=== PATIENT | female | born 1945 | race Caucasian/White ===

== ENCOUNTER 2016-12-27 14:45 | Observation (INO) ==
--- NOTE | 2016-12-27 14:49 | Emergency Department Note ---
Disposition Clinical Impression: Chest pain of uncertain etiology Disposition: Admitted As Inpatient Condition: Fair General Adult HPI - General Chief complaint: ED Chest Pain Stated complaint: chest discomfort Time Seen by Provider: 12/27/16 14:48 - Related Data Home Medications Medication Instructions Recorded Confirmed Acetaminophen [Tylenol] 500 mg PO Q6H PRN 12/05/14 12/27/16 Aspirin [Adult Low Dose Aspirin EC] 81 mg PO DAILY 12/05/14 12/27/16 Cholecalciferol (Vitamin D3) 1,000 unit PO DAILY 12/05/14 12/27/16 [Vitamin D] Omeprazole [PriLOSEC] 20 mg PO BID 12/05/14 12/27/16 Spironolactone [Aldactone] 25 mg PO DAILY 12/05/14 12/27/16 Biotin 1 mg PO DAILY 12/25/14 12/27/16 Carvedilol 3.125 mg PO BID PRN 12/25/14 12/27/16 Escitalopram [Lexapro] 10 mg PO QPM 12/25/14 12/27/16 Ginkgo Biloba [place] Extract [Ginkgo 30 mg PO DAILY 12/25/14 12/27/16 Biloba] Lovastatin [Mevacor] 20 mg PO HS 12/25/14 12/27/16 Apixaban [Eliquis] 5 mg PO BID 12/27/16 12/27/16 LORazepam [Ativan] 1 mg PO DAILY PRN 12/27/16 12/27/16 Levothyroxine [Synthroid] 50 mcg PO 0630 12/27/16 12/27/16 [place]-3/Dha/Epa/Fish Oil [[place]-3 1,000 mg PO DAILY 12/27/16 12/27/16 Fish Oil 1,000 mg Sfgl] OxyCODONE Oral Soln [OxyCODONE 5 ml PO Q6H PRN 12/27/16 12/27/16 ORAL SOLN] Valsartan [Diovan] 160 mg PO DAILY 12/27/16 12/27/16 Previous Rx's Medication Instructions Recorded Ondansetron HCl 4 mg PO Q8H PRN #60 tablet 01/06/16 Allergies Allergy/AdvReac Type Severity Reaction Status Date / Time Sulfa (Sulfonamide AdvReac Nausea Verified 09/23/15 04:06 Antibiotics) Past Medical History - Past Medical History Medical history: Reports: atrial fibrillation, COPD, coronary artery disease, diabetes, hypertension, renal disease Surgical history: Reports: appendectomy, breast surgery, hip replacement Psychiatric history: Reports: anxiety, depression WASTE MANAGEMENT SPECIALIST history: Reports: bilateral tubal ligation - Social History Smoking Status: Never smoker Smokeless Tobacco Status: No Alcohol use: Reports: none Drug use: Reports: none Course Vital Signs Temperature 97.7 F 12/27/16 14:54 Pulse Rate 50 12/27/16 14:54 Respiratory Rate 18 12/27/16 14:54 Blood Pressure 146/72 12/27/16 14:54 O2 Sat by Pulse Oximetry 99 12/27/16 14:54 Temperature 98.0 F 12/28/16 10:46 Pulse Rate 56 12/28/16 10:46 Respiratory Rate 18 12/28/16 10:46 Blood Pressure 115/73 12/28/16 10:46 O2 Sat by Pulse Oximetry 97 12/28/16 10:46 Oxygen Delivery Oxygen Delivery Nasal Cannula Medical Decision Making - Lab Data Result diagrams: 12/28/16 04:14 12/28/16 04:14 Lab Results 12/27/16 12/27/16 12/27/16 Range/Units 15:41 15:41 15:41 WBC 7.7 (4.3-11.1) K/mcL RBC 4.32 (3.82-4.97) M/mcL Hgb 12.3 (11.5-15.4) g/dL Hct 38.5 (35.3-44.9) % MCV 89.1 (83.0-100.0) fL MCH 28.5 (28.0-33.3) pg MCHC 31.9 (31.6-35.5) g/dL RDW 14.4 (11.5-14.5) % Plt Count 232 (140-400) K/mcL MPV 10.1 (9.4-12.4) fL Immature Gran % 0.5 (0-4) % Seg Neutrophils % 81.0 % Lymphocytes % 8.7 % Monocytes % 8.3 % Eosinophils % 1.0 % Basophils % 0.5 % Neutrophils # 6.3 (1.6-8.9) K/mcL Lymphocytes # 0.7 (0.6-4.6) K/mcL Monocytes # 0.6 (0.0-1.3) K/mcL Eosinophils # 0.1 (0.0-0.6) K/mcL Basophils # 0.0 (0.0-0.2) K/mcL Sodium 141 (136-145) mEq/L Potassium 4.6 H (3.5-4.5) mEq/L Chloride 106 (98-109) mEq/L Carbon Dioxide 25 (19-29) mEq/L BUN 26 H (7-20) mg/dL Creatinine 1.12 H (0.57-1.11) mg/dL Est GFR ( Amer) 58 L (> 60) Est GFR (Non-Af Amer) 48 L (> 60) BUN/Creatinine Ratio 23 (6-26) Glucose 101 H (70-99) mg/dL Calculated Osmolality 297 (280-300) Calcium 9.9 (8.6-10.8) mg/dL Troponin I (0-0.03) ng/mL B-Natriuretic Peptide 18 (0-100) pg/mL 12/27/16 Range/Units 15:41 WBC (4.3-11.1) K/mcL RBC (3.82-4.97) M/mcL Hgb (11.5-15.4) g/dL Hct (35.3-44.9) % MCV (83.0-100.0) fL MCH (28.0-33.3) pg MCHC (31.6-35.5) g/dL RDW (11.5-14.5) % Plt Count (140-400) K/mcL MPV (9.4-12.4) fL Immature Gran % (0-4) % Seg Neutrophils % % Lymphocytes % % Monocytes % % Eosinophils % % Basophils % % Neutrophils # (1.6-8.9) K/mcL Lymphocytes # (0.6-4.6) K/mcL Monocytes # (0.0-1.3) K/mcL Eosinophils # (0.0-0.6) K/mcL Basophils # (0.0-0.2) K/mcL Sodium (136-145) mEq/L Potassium (3.5-4.5) mEq/L Chloride (98-109) mEq/L Carbon Dioxide (19-29) mEq/L BUN (7-20) mg/dL Creatinine (0.57-1.11) mg/dL Est GFR ( Amer) (> 60) Est GFR (Non-Af Amer) (> 60) BUN/Creatinine Ratio (6-26) Glucose (70-99) mg/dL Calculated Osmolality (280-300) Calcium (8.6-10.8) mg/dL Troponin I 0.00 (0-0.03) ng/mL B-Natriuretic Peptide (0-100) pg/mL Attestation Statement - Attestation Attestation: I examined this patient and my medical decision-making was reviewed with the Resident Physician. I agree with the documented findings, disposition and treatment plan as described except to the extent set forth below. [id number] time provided Patient arrives by EMS complaining of chest discomfort that occurs with exertion. She conveys concern that she "might have some blockages." She appears in no acute distress on exam. The plan of care and management was discussed by me with the resident physician Dr. Arevalo
[2016-12-27] MEDS ORDERED: Aspirin 81 MG TAB.CHEW PO ONE (14:53)
--- NOTE | 2016-12-27 15:02 | Emergency Department Note ---
Disposition Clinical Impression: Chest pain of uncertain etiology Disposition: Admitted As Inpatient Condition: Fair Time of Disposition: 18:06 Chest Pain HPI - General Chief Complaint: ED Chest Pain Stated Complaint: chest discomfort Time Seen by Provider: 12/27/16 14:48 Vital Signs Reviewed: Yes Nursing Notes Reviewed: Yes - History of Present Illness HPI Narrative: Mrs. Berumen, a 71-year-old female, resents from home via EMS for evaluation of chest discomfort. This has been intermittent over the last week. She became concerned as it began this morning at 8 AM after she was awake and has been persistent since. It occurred while at rest. She has not taken any medications to help relieve her symptoms. Described as substernal sharpness with no radiation. Associated with nausea. Patient has a history of CAD with ACS with no stent 4 years ago. Her symptoms today are more severe than her symptoms of her previous episode of ACS. PMH: Hypertension, hyperlipidemia, diabetes, CAD with ACS with no stent, status post remote esophageal cancer - Related Data Home Medications Medication Instructions Recorded Confirmed Acetaminophen [Tylenol] 500 mg PO Q6H PRN 12/05/14 12/27/16 Aspirin [Adult Low Dose Aspirin EC] 81 mg PO DAILY 12/05/14 12/27/16 Cholecalciferol (Vitamin D3) 1,000 unit PO DAILY 12/05/14 12/27/16 [Vitamin D] Omeprazole [PriLOSEC] 20 mg PO BID 12/05/14 12/27/16 Spironolactone [Aldactone] 25 mg PO DAILY 12/05/14 12/27/16 Biotin 1 mg PO DAILY 12/25/14 12/27/16 Carvedilol 3.125 mg PO BID PRN 12/25/14 12/27/16 Escitalopram [Lexapro] 10 mg PO QPM 12/25/14 12/27/16 Ginkgo Biloba [place] Extract [Ginkgo 30 mg PO DAILY 12/25/14 12/27/16 Biloba] Lovastatin [Mevacor] 20 mg PO HS 12/25/14 12/27/16 Apixaban [Eliquis] 5 mg PO BID 12/27/16 12/27/16 LORazepam [Ativan] 1 mg PO DAILY PRN 12/27/16 12/27/16 Levothyroxine [Synthroid] 50 mcg PO 0630 12/27/16 12/27/16 [place]-3/Dha/Epa/Fish Oil [[place]-3 1,000 mg PO DAILY 12/27/16 12/27/16 Fish Oil 1,000 mg Sfgl] OxyCODONE Oral Soln [OxyCODONE 5 ml PO Q6H PRN 12/27/16 12/27/16 ORAL SOLN] Valsartan [Diovan] 160 mg PO DAILY 12/27/16 12/27/16 Previous Rx's Medication Instructions Recorded Ondansetron HCl 4 mg PO Q8H PRN #60 tablet 01/06/16 Allergies Allergy/AdvReac Type Severity Reaction Status Date / Time Sulfa (Sulfonamide AdvReac Nausea Verified 11/13/14 04:06 Antibiotics) All systems ED: reviewed and negative except as stated. Review of Systems: As Per HPI Chest Pain PMH - Past Medical History Medical history: Reports: atrial fibrillation, COPD, coronary artery disease, diabetes, hypertension, renal disease Surgical history: Reports: appendectomy, breast surgery, hip replacement Psychiatric history: Reports: anxiety, depression DIGITAL CONTENT SPECIALIST history: Reports: bilateral tubal ligation - Social History Smoking Status: Never smoker Alcohol use: Reports: none Drug use: Reports: none Physical Exam Vital Signs Reviewed General: Patient is alert, oriented, and in no acute distress. HEENT: No facial asymmetry. Head is normocephalic and atraumatic. Oral mucosa moist. Trachea midline. Cardiovascular: Heart regular rate and rhythm without clicks, rubs, gallops, or murmurs. No JVD. PMI nondisplaced. Bilateral radial and posterior tibial pulses 2/4 and equal. Trace bilateral pedal edema. No appreciable swelling of the patient's hands or upper extremity. Respiratory: Symmetric chest rise with good respiratory effort. Bilateral breath sounds are clear without wheezing, crackles, or rhonchi. Abdomen: Venous. Bowel sounds present normoactive x-4 quadrants. Abdomen is soft, nondistended, and nontender. No organomegaly noted. Skin: Warm, dry, intact. Psych: Patient's affect is appropriate for situation. Course Course Narrative: Patient story is concerning for chest pain of ACS etiology. She has had no dyspnea, no fever, no chills. I do not suspect PE. She is not anemic. EKG is unchanged from previous. Initial troponin is 0. Chest x-ray is unremarkable. I discussed the patient the admitting hospitalist, Dr. Fontaine, who agrees to accept the patient for continued evaluation and management. Vital Signs Temperature 97.7 F 12/27/16 14:54 Pulse Rate 50 12/27/16 14:54 Respiratory Rate 18 12/27/16 14:54 Blood Pressure 146/72 12/27/16 14:54 O2 Sat by Pulse Oximetry 99 12/27/16 14:54 Temperature 97.7 F 12/27/16 14:54 Pulse Rate 52 12/27/16 17:34 Respiratory Rate 16 12/27/16 17:34 Blood Pressure 141/85 12/27/16 17:34 O2 Sat by Pulse Oximetry 99 12/27/16 17:34 Oxygen Delivery Oxygen Delivery Nasal Cannula Chest Pain - Medical Records Medical records reviewed: Yes I reviewed the patient's medical records. - Lab Data Result diagrams: 12/27/16 15:41 12/27/16 15:41 Lab Results 12/27/16 12/27/16 12/27/16 Range/Units 15:41 15:41 15:41 WBC 7.7 (4.3-11.1) K/mcL RBC 4.32 (3.82-4.97) M/mcL Hgb 12.3 (11.5-15.4) g/dL Hct 38.5 (35.3-44.9) % MCV 89.1 (83.0-100.0) fL MCH 28.5 (28.0-33.3) pg MCHC 31.9 (31.6-35.5) g/dL RDW 14.4 (11.5-14.5) % Plt Count 232 (140-400) K/mcL MPV 10.1 (9.4-12.4) fL Immature Gran % 0.5 (0-4) % Seg Neutrophils % 81.0 % Lymphocytes % 8.7 % Monocytes % 8.3 % Eosinophils % 1.0 % Basophils % 0.5 % Neutrophils # 6.3 (1.6-8.9) K/mcL Lymphocytes # 0.7 (0.6-4.6) K/mcL Monocytes # 0.6 (0.0-1.3) K/mcL Eosinophils # 0.1 (0.0-0.6) K/mcL Basophils # 0.0 (0.0-0.2) K/mcL Sodium 141 (136-145) mEq/L Potassium 4.6 H (3.5-4.5) mEq/L Chloride 106 (98-109) mEq/L Carbon Dioxide 25 (19-29) mEq/L BUN 26 H (7-20) mg/dL Creatinine 1.12 H (0.57-1.11) mg/dL Est GFR ( Amer) 58 L (> 60) Est GFR (Non-Af Amer) 48 L (> 60) BUN/Creatinine Ratio 23 (6-26) Glucose 101 H (70-99) mg/dL Calculated Osmolality 297 (280-300) Calcium 9.9 (8.6-10.8) mg/dL Troponin I (0-0.03) ng/mL B-Natriuretic Peptide 18 (0-100) pg/mL 12/27/16 Range/Units 15:41 WBC (4.3-11.1) K/mcL RBC (3.82-4.97) M/mcL Hgb (11.5-15.4) g/dL Hct (35.3-44.9) % MCV (83.0-100.0) fL MCH (28.0-33.3) pg MCHC (31.6-35.5) g/dL RDW (11.5-14.5) % Plt Count (140-400) K/mcL MPV (9.4-12.4) fL Immature Gran % (0-4) % Seg Neutrophils % % Lymphocytes % % Monocytes % % Eosinophils % % Basophils % % Neutrophils # (1.6-8.9) K/mcL Lymphocytes # (0.6-4.6) K/mcL Monocytes # (0.0-1.3) K/mcL Eosinophils # (0.0-0.6) K/mcL Basophils # (0.0-0.2) K/mcL Sodium (136-145) mEq/L Potassium (3.5-4.5) mEq/L Chloride (98-109) mEq/L Carbon Dioxide (19-29) mEq/L BUN (7-20) mg/dL Creatinine (0.57-1.11) mg/dL Est GFR ( Amer) (> 60) Est GFR (Non-Af Amer) (> 60) BUN/Creatinine Ratio (6-26) Glucose (70-99) mg/dL Calculated Osmolality (280-300) Calcium (8.6-10.8) mg/dL Troponin I 0.00 (0-0.03) ng/mL B-Natriuretic Peptide (0-100) pg/mL - EKG Data EKG attestation: Yes I reviewed and interpreted this EKG. EKG results narrative: EKG dated 27 December 2016 at 15:13 interpreted as sinus bradycardia with first- degree block; rate of 48, [place] 235. Normal axis. Nonspecific S T changes. Compared to previous dated 04/01/2016 showing no acute ischemic changes in comparison; bradycardia with first-degree block present at that time.
[2016-12-27 15:47] LABS: Basophils % 0.5 %; Eosinophils # 0.1 K/mcL (0.0-0.6); Hematocrit 38.5 % (35.3-44.9); Hemoglobin 12.3 g/dL (11.5-15.4); Immature Granulocytes % 0.5 % (0-4); Lymphocytes # 0.7 K/mcL (0.6-4.6); Lymphocytes % 8.7 %; Mean Corpuscular HGB Conc 31.9 g/dL (31.6-35.5); Mean Corpuscular Hemoglobin 28.5 pg (28.0-33.3); Mean Corpuscular Volume 89.1 fL (83.0-100.0); Mean Platelet Volume 10.1 fL (9.4-12.4); Monocytes # 0.6 K/mcL (0.0-1.3); Monocytes % 8.3 %; Neutrophils # 6.3 K/mcL (1.6-8.9); Platelet Count 232 K/mcL (140-400); Red Blood Count 4.32 M/mcL (3.82-4.97); Red Cell Distribution Width 14.4 % (11.5-14.5)
[2016-12-27 16:00] LABS: Calcium 9.9 mg/dL (8.6-10.8); Potassium 4.6 mEq/L (3.5-4.5)
[2016-12-27] MEDS ORDERED: *HR* LORazepam 1 MG TABLET PO PRN (17:47)
[2016-12-27] MEDS ORDERED: Naloxone 0.4 MG/ML INJ IVP PRN (17:50)
[2016-12-27] MEDS ORDERED: Ondansetron ODT 4 MG TAB.RAPDIS SL PRN (17:50)
--- NOTE | 2016-12-27 17:59 | Internal Med History&Physical ---
Date of Encounter: 12/27/16 Time of Encounter: 17:56 Assessment and Plan (1) Chest pain Current visit: Yes Status: Acute Currently denying any chest pain. She reports chest pain improved with one sublingual nitroglycerin. Has multiple risk factors including hypertension, HLD , DM, and prior IA. Echocardiogram Plan nuclear stress in the morning Serial troponins Continuous telemetry, continuous SPO2 Consult cardio based on results of stress test CBC, CMP in the morning Qualifiers: Chest pain type: unspecified Qualified Code(s): R07.9 - Chest pain, unspecified (2) HTN (hypertension) Current visit: Yes Status: Acute History of hypertension, systolic blood pressure in the 140s. Continue beta randy and ARB Qualifiers: Hypertension type: essential hypertension Qualified Code(s): I10 - Essential (primary) hypertension (3) CAD (coronary artery disease) Current visit: Yes Status: Acute History of COPD. Patient reports prior IA, no stents. Continue aspirin, statin, eliquis, ARB,bb Continuous telemetry; see plan above Qualifiers: Coronary Disease-Associated Artery/Lesion type: [place] artery [place] vs. transplanted heart: [place] heart Associated angina: angina presence unspecified Qualified Code(s): I25.10 - Atherosclerotic heart disease of [place] coronary artery without angina pectoris (4) Renal disease Current visit: Yes Status: Acute (5) HLD (hyperlipidemia) Current visit: Yes Status: Acute Continue statin Qualifiers: Hyperlipidemia type: unspecified Qualified Code(s): E78.5 - Hyperlipidemia , unspecified (6) Pneumonia Current visit: Yes Status: Acute Qualifiers: Qualified Code(s): J18.9 - Pneumonia, unspecified organism (7) Hypothyroid Current visit: Yes Status: Acute Continue Synthroid, check TSH as the patient is been feeling weak and fatigued. Echocardiogram noted sinus bradycardia Qualifiers: Hypothyroidism type: unspecified Qualified Code(s): E03.9 - Hypothyroidism , unspecified Internal Medicine - H&P: HPI Chief complaint: Chest pain Admitted From: Home Plans for Post Hospital Care: Home History of present illness: Ms. Berumen is a 71 year old female with a past medical history of hypertension, HLD, DM, prior IA without stents, COPD, CAD and renal disease. She reports that her last couple weeks she has felt very weak and is noticing swelling in her bilateral upper and lower extremitie. The patient states that today she began experiencing nonexertional midsternal chest pain, shortness of breath, and nausea without radiation. She states that the chest pain was not worsened with activity. She was given one sublingual nitroglycerin tablet and nose the chest pain improved as well as shortness of breath. She is currently denying any chest pain. She reports her last heart catheter was approximately 4 years ago. Multiple risk factors for IA including hypertension, hyperlipidemia, diabetes, smoking, And prior IA. She denies any fever, chills, weight gain, cough, dizziness, extremity pain. Chest x-ray reveals minimal bibasilar airspace disease with atelectasis versus pneumonia, troponin negative at 0.01 Past Med Surg Social Fam HX - Past Medical History Medical history: atrial fibrillation, COPD, coronary artery disease, diabetes, hypertension, renal disease Psychiatric history: anxiety, depression - Past Surgical History Surgical History: appendectomy, breast surgery, hip replacement - Social History Smoking Status: Never smoker Smokeless Tobacco Status: No Alcohol use: none Drug use: none - Family History Mother Living Status: Hx Family Cancer: Yes Hx Family Endocrine Disorder: Yes Internal Medicine - H&P: Meds Acetaminophen [Tylenol] 500 mg PO Q6H PRN 12/05/14 [History] Aspirin [Adult Low Dose Aspirin EC] 81 mg PO DAILY 12/05/14 [History] Cholecalciferol (Vitamin D3) [Vitamin D] 1,000 unit PO DAILY 12/05/14 [History] Omeprazole [PriLOSEC] 20 mg PO BID 12/05/14 [History] Spironolactone [Aldactone] 25 mg PO DAILY 12/05/14 [History] Biotin 1 mg PO DAILY 12/25/14 [History] Carvedilol 3.125 mg PO BID PRN 12/25/14 [History] Escitalopram [Lexapro] 10 mg PO QPM 12/25/14 [History] Ginkgo Biloba [place] Extract [Ginkgo Biloba] 30 mg PO DAILY 12/25/14 [History] Lovastatin [Mevacor] 20 mg PO HS 12/25/14 [History] Ondansetron HCl 4 mg PO Q8H PRN #60 tablet 01/06/16 [Rx] Apixaban [Eliquis] 5 mg PO BID 12/27/16 [History] LORazepam [Ativan] 1 mg PO DAILY PRN 12/27/16 [History] Levothyroxine [Synthroid] 50 mcg PO 0630 12/27/16 [History] [place]-3/Dha/Epa/Fish Oil [[place]-3 Fish Oil 1,000 mg Sfgl] 1,000 mg PO DAILY 08/07 [History] OxyCODONE Oral Soln [OxyCODONE ORAL SOLN] 5 ml PO Q6H PRN 12/27/16 [History] Valsartan [Diovan] 160 mg PO DAILY 12/27/16 [History] 3 Allergy/AdvReac Type Severity Reaction Status Date / Time Sulfa (Sulfonamide AdvReac Nausea Verified 11/13/14 04:06 Antibiotics) All Systems PM: A 10-system review of systems was performed and is negative for pertinent findings except as documented above in the HPI. - Constitutional Constitutional: fatigue, weakness, no chills, no fever(s), no night sweats, no weight gain - EENT Eyes: no change in vision, no discharge, no pain, no photophobia Ears: no ear discharge, no ear pain, no tinnitus Nose, mouth and throat: no dysphagia, no nasal discharge, no neck pain, no sore throat - Cardiovascular Cardiovascular ROS IM: as per HPI, chest pain, dyspnea, no diaphoresis, no edema , no irregular heart rhythm, no lightheadedness, no palpitations, no syncope - Respiratory Respiratory: dyspnea, no cough, no wheezing, no snoring, no pain on inspiration , no chest congestion, no excessive phlegm production - Gastrointestinal Gastrointestinal: no abdominal pain, no diarrhea, no hematemesis, no hematochezia, no melena, no nausea, no vomiting - Genitourinary Genitourinary: no change in urinary stream, no dysuria, no flank pain, no hematuria - Constitutional Vitals: Temp Pulse Resp BP Pulse Ox 97.7 F 52 16 141/85 99 12/27/16 14:54 12/27/16 17:34 12/27/16 17:34 12/27/16 17:34 12/27/16 17:34 General appearance: Present: cooperative, A&O X 3, no acute distress, answers questions appropriately - Head Head exam: Present: atraumatic, normocephalic - Eye Eye exam: Present: PERRL, conjuntiva pink, sclera anicteric Pupils: Present: PERRL - Respiratory Respiratory exam: Present: decreased breath sounds, CTAB. Absent: accessory muscle use, prolonged expiratory phase, rales, respiratory distress, rhonchi, wheezes, tachypnea - Cardiovascular Cardiovascular exam: Present: bradycardia, RRR, +S1, +S2. Absent: diastolic murmur, gallop, irregular rhythm, JVD, rubs, systolic murmur, tachycardia - GI/Abdominal GI/Abdominal exam: Present: normal bowel sounds, soft, no peritoneal signs. Absent: distended, tenderness - Extremities Exam Extremities exam: Present: normal capillary refill, warm, radial pulses palpable and symmetrical. Absent: calf tenderness, cyanotic, pedal edema (No edema noted ), tenderness - Neurological Exam Neurological exam: Present: CN II-XII intact, oriented X3, no focal deficits. Absent: pronater drift, facial droop, speech deficit - Skin Skin exam: Present: dry, intact Internal Med - H&P Results - Labs CBC & Chem 7: 12/27/16 15:41 12/27/16 15:41 - EKG Data -: EKG Interpreted by Myself EKG shows normal: sinus rhythm Rate: bradycardia - EKG Data Prior EKG available for review: yes When compared to previous EKG: there is no significant change EKG comments: 12/27/16 18:04 Sinus bradycardia - Diagnostic Studies Chest x-ray Status: image reviewed by me Additional comments: Atelectasis versus pneumonia, basilar airspace disease - VTE Reasons for not Prescribing Prophylaxis: Not indicated-Anticoagulated or INR therapeutic
--- NOTE | 2016-12-27 19:00 | Event Note ---
Date of Encounter: 12/27/16 Time of Encounter: 18:59 Patient and examined with nurse practitioner. Ruled out acute coronary syndrome. She had a coronary angiogram approximately 4 years ago and according to her there was no occlusive disease. Electrocardiogram shows no ST segment shifts initial troponin normal. She is bradycardic in the 40s to hold beta blockers. Also she is slightly hyperkalemic withholds spironolactone for now. Gentle hydration total of 500 mL of fluid. She mentioned that she started gaining weight recently no pitting edema. Check thyroid profile. She was off pain during my interview.
[2016-12-27] MEDS: APIXABAN 5 MG TABLET PO SCH (21:30)
[2016-12-27] MEDS: 0.9 % Sodium Chloride 500 ML IVC SCH (21:30)
[2016-12-28] MEDS: Acetaminophen 325 MG TABLET PO PRN ×2 (00:28→21:13)
[2016-12-28] MEDS: 0.9 % Sodium Chloride 500 ML IVC SCH ×5 (03:26→22:41)
[2016-12-28 05:18] LABS: Basophils % 0.7 %; Eosinophils # 0.2 K/mcL (0.0-0.6); Eosinophils % 2.9 %; Hematocrit 35.6 % (35.3-44.9); Hemoglobin 11.2 g/dL (11.5-15.4); Immature Granulocytes % 0.5 % (0-4); Lymphocytes % 18.4 %; Mean Corpuscular HGB Conc 31.5 g/dL (31.6-35.5); Mean Corpuscular Hemoglobin 28.4 pg (28.0-33.3); Mean Corpuscular Volume 90.4 fL (83.0-100.0); Mean Platelet Volume 10.7 fL (9.4-12.4); Monocytes # 0.7 K/mcL (0.0-1.3); Monocytes % 12.6 %; Neutrophils # 3.6 K/mcL (1.6-8.9); Platelet Count 220 K/mcL (140-400); Red Blood Count 3.94 M/mcL (3.82-4.97); Red Cell Distribution Width 14.4 % (11.5-14.5); Segmented Neutrophils % 64.9 %
[2016-12-28 05:33] LABS: Albumin 3.2 g/dL (3.5-5.0); Albumin/Globulin Ratio 1.1 (1.1-2.2); Bilirubin,Total 0.2 mg/dL (0.2-1.2); Calcium 8.9 mg/dL (8.6-10.8); Chol/HDL Ratio 3.1 (0-4.9); Magnesium 1.7 mg/dL (1.6-2.6); Phosphorous 4.7 mg/dL (2.3-4.7); Potassium 4.6 mEq/L (3.5-4.5); Total Protein 6.2 g/dL (6.0-8.3)
[2016-12-28 05:55] LABS: Thyroid Stimulating Hormone 4.178 mcIU/mL (0.350-4.840)
[2016-12-28] MEDS ORDERED: Regadenoson 0.4 MG/5 ML SYRINGE IVP ONE (06:04)
[2016-12-28] MEDS ORDERED: Valsartan 160 MG TABLET PO SCH (09:00)
[2016-12-28] MEDS ORDERED: Spironolactone 25 MG TABLET PO SCH (09:00)
--- NOTE | 2016-12-28 10:26 | Cardiology Consult Note ---
Date of Encounter: 12/28/16 Time of Encounter: 10:14 Assessment and Plan (1) Chest pain Current Visit: Yes Status: Acute CP due to Lung disease vs costochondro vs less likely Cardiac origin. Patient has suspected history of lung disease/COPD. Possibly still a current smoker. BNP 18. Patient reports recent fluid overload, not seen clinically. Cardiac risk factors include previous afib, ACS, HTN, HLD. Trop 0.01 x3. Pain is localized, and reproducible. - stress test pending - Started on metoprolol XL 25 for rate control Qualifiers: Chest pain type: unspecified Qualified Code(s): R07.9 - Chest pain, unspecified Discussion w patient/family: The assessment and plan as outlined above was discussed with the patient and/or family members who expressed understanding and agreement. All questions were answered. Thank you for involving us in the care of your patient. Please call with any questions. History of Present Illness Consult date: 12/28/16 Requesting physician: Randolph Castro Consult reason: chest pain/SOB Chief complaint: SOB History of present illness: Ms. Berumen is a 71 year old female w/ hx of CAD w/ previous ACS no stents placed, Afib, HTN, HLD, T2DM, and esophageal cancer last chemo 2013, and possibly current smoker came in with chest pain and SOB. SOB started on Tuesday and has progressed and is present at rest and worsened with exertion, and chest pain started yesterday morning. Patient reports the chest pain as localized to the left margin of her sternum, is reproducible, and is described as sharp. Patient has associated leg swelling that has progressing for the last couple of weeks. In the ED, she was given Nitro which relieved her pain, and started on 3L NC which has improved her SOB but still is present at rest. Patient denies orthopena, PND, dyspnea, radiating of her pain. Patient states that she regularly takes her meds once a day, but her carvedilol she only takes PRN when her HR goes above 80. In the last week, she's had to take it on a daily basis. On chart review, patient is reported to be a current smoker, and possibly has underlying lung disease. patient denies current smoker. Past Med Surg Social Fam HX - Past Medical History Medical history: atrial fibrillation, COPD, coronary artery disease, diabetes, hypertension, renal disease Psychiatric history: anxiety, depression - Past Surgical History Surgical History: appendectomy, breast surgery, hip replacement - Social History Smoking Status: Never smoker Smokeless Tobacco Status: No Alcohol use: none Drug use: none - Family History Mother Living Status: Hx Family Cancer: Yes Hx Family Endocrine Disorder: Yes Medications and Allergies Acetaminophen [Tylenol] 500 mg PO Q6H PRN 12/05/14 [History] Aspirin [Adult Low Dose Aspirin EC] 81 mg PO DAILY 12/05/14 [History] Cholecalciferol (Vitamin D3) [Vitamin D] 1,000 unit PO DAILY 12/05/14 [History] Omeprazole [PriLOSEC] 20 mg PO BID 12/05/14 [History] Spironolactone [Aldactone] 25 mg PO DAILY 12/05/14 [History] Biotin 1 mg PO DAILY 12/25/14 [History] Carvedilol 3.125 mg PO BID PRN 12/25/14 [History] Escitalopram [Lexapro] 10 mg PO QPM 12/25/14 [History] Ginkgo Biloba [place] Extract [Ginkgo Biloba] 30 mg PO DAILY 12/25/14 [History] Lovastatin [Mevacor] 20 mg PO HS 12/25/14 [History] Ondansetron HCl 4 mg PO Q8H PRN #60 tablet 01/06/16 [Rx] Apixaban [Eliquis] 5 mg PO BID 12/27/16 [History] LORazepam [Ativan] 1 mg PO DAILY PRN 12/27/16 [History] Levothyroxine [Synthroid] 50 mcg PO 0630 12/27/16 [History] [place]-3/Dha/Epa/Fish Oil [[place]-3 Fish Oil 1,000 mg Sfgl] 1,000 mg PO DAILY 08/07 [History] OxyCODONE Oral Soln [OxyCODONE ORAL SOLN] 5 ml PO Q6H PRN 12/27/16 [History] Valsartan [Diovan] 160 mg PO DAILY 12/27/16 [History] 3 Allergy/AdvReac Type Severity Reaction Status Date / Time Sulfa (Sulfonamide AdvReac Nausea Verified 11/13/14 04:06 Antibiotics) All Systems Review: A 10-system review of systems was performed and is negative for pertinent findings except as documented above in the HPI. - Constitutional Constitutional: fatigue, headache(s), snoring, no fever(s), no malaise, no night sweats, no stops breathing during sleep, no weight gain, no weight loss - EENT Eyes: no blurred vision, no loss of vision - Cardiovascular Cardiovascular: as per HPI - Respiratory Respiratory: dyspnea, wheezing, no cough, no hemoptysis - Gastrointestinal Gastrointestinal: no abdominal pain, no constipation, no diarrhea, no hematemesis, no hematochezia - Genitourinary Genitourinary: no dysuria, no hematuria, no nocturia - Neurological Neurological: no abnormal speech, no dizziness, no focal weakness, no loss of vision, no memory loss, no numbness, no syncope, no tingling - Psychiatric Psychiatric: no anxiety, no depression, no hallucinations, no panic attacks - Hematological/Lymphatic Hematologic/Lymphatic: no easy bleeding, no easy bruising Physical Examination Vital Signs, Last 4 Hours Temp Pulse Resp BP Pulse Ox 12/28/16 07:12 97.7 F 54 19 115/61 99 General: Conversant, No Apparent Distress HEENT: Atraumatic, Normocephaly, Mucus Membranes Moist Neck: No JVD, Normal carotid pulses Cardiac: Reg Rate and Rhythm, Normal S1 and S2, No Murmur Lungs: Other (expiratory wheezes at the base of her lungs) Neuro: Alert and responsive, No focal deficits noted Abdomen: Soft, Non-Tender Skin: No rashes noted on visualized skin Musculoskeletal: No Chest Wall Tenderness Extremities: No Clubbing, No Cyanosis, Normal Pulses, Other (1/4 BLE pitting edema) Results 12/28/16 04:14 12/28/16 04:14 Lab Results 12/27/16 12/28/16 12/28/16 21:39 04:14 04:14 WBC 5.5 Hgb 11.2 L Hct 35.6 Plt Count 220 Sodium Potassium Chloride Carbon Dioxide BUN Creatinine Glucose Calcium Magnesium Total Bilirubin AST ALT Alkaline Phosphatase Troponin I 0.01 0.01 TSH 12/28/16 04:14 WBC Hgb Hct Plt Count Sodium 142 Potassium 4.6 H Chloride 108 Carbon Dioxide 25 BUN 31 H Creatinine 1.28 H Glucose 109 H Calcium 8.9 Magnesium 1.7 Total Bilirubin 0.2 AST 17 ALT 13 Alkaline Phosphatase 77 Troponin I TSH 4.178 Consult Discharge Plan - Plan Referrals: Marcos Rosado MD [Primary Care Provider] -
--- NOTE | 2016-12-28 12:48 | Discharge Summary ---
Date of Encounter: 12/28/16 Time of Encounter: 08:25 - Discharge Diagnosis (1) Chest pain Priority: Primary Status: Acute Comments: Patient was drowsy this morning during assessment and exam. Over the last couple of weeks, she reports feeling weak and tired, admission notes report that she has had edema in bilateral upper and lower extremities. Patient reports that on the day of admission she began experiencing midsternal chest pain, shortness of breath, and nausea. There was no radiation, vomiting, diaphoresis or shortness of breath. There were no alleviating or aggravating factors. Patient reports that pain was relieved when she was given one sublingual nitroglycerin in the squad. She reports that she has not had any chest pain since that time. She states that she had a different kind of chest pain when she slept on her left side last night, when she rolled onto the right-sided stopped. Patient has multiple risk factors for ME/ACS including hypertension, hyperlipidemia, diabetes and smoking. Patient has a history of prior ME. Pain is not reproducible with palpation, deep inspiration, or movement. She has had this same chest pain in the past, however this time was worse which was concerning and brought her to the emergency department. Patient had a concerning episode of what appeared to be V. tach on the monitor. I brought this to the attention of cardiology and consulted them prior to sending her to her stress test. They have added Metoprolol 25mg po daily. Pt has been bradycardic since arrival, average pulse has been in the 50s, 46 this a.m. during exam. TSH WNL, troponins negative x 3, chest xray with minimal bibasilar airspace disease, atelectasis vs pna. 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 This appears to be at pts baseline. Avoid nephrotoxins and NSAIDs. Pt is receiving gentle IVF hydration. Continue to monitor labs. (3) HTN (hypertension) Priority: Secondary Status: Chronic Comments: Well controlled in hospital. Continue to monitor labs and continue home medications. Qualifiers: Hypertension type: essential hypertension Qualified Code(s): I10 - Essential (primary) hypertension (4) COPD (chronic obstructive pulmonary disease) Priority: Secondary Status: Chronic Comments: Chronic. Lungs clear and diminished throughout. Continue nebulizer treatments Continue 02, titrate as needed to maintain sats >92% Chest X-Ray 12/27/16 14:54 IMPRESSION: Minimal bibasilar airspace disease, atelectasis versus pneumonia. D/ / Carola Stockton MD / Carola Stockton MD Interpreting Provider: Carola Stockton MD Qualifiers: COPD type: emphysema Emphysema type: unspecified Qualified Code(s): J43.9 - Emphysema, unspecified (5) CAD (coronary artery disease) Priority: Secondary Status: Chronic Comments: Denies chest pain since arrival. Plan as above for chest pain. Prior history of ME. Qualifiers: Coronary Disease-Associated Artery/Lesion type: [place] artery [place] vs. transplanted heart: [place] heart Associated angina: angina presence unspecified Qualified Code(s): I25.10 - Atherosclerotic heart disease of [place] coronary artery without angina pectoris (6) HLD (hyperlipidemia) Priority: Secondary Status: Acute Comments: Labs WNL. Continue Mevacor. Qualifiers: Hyperlipidemia type: unspecified Qualified Code(s): E78.5 - Hyperlipidemia , unspecified (7) Pneumonia Priority: Secondary Status: Acute Comments: Lungs clear and diminished. Pt denies new, productive cough. She does report recent weakness and fatigue. Pt is afebrile, normotensive, pulse WNL, and there is no leukocytosis. Will continue to monitor pt condition , labs, and vitals. Continue 02 as needed, titrate to maintain sats > 92% Continue nebulizer treatments Mucinex 600mg po bid prn Qualifiers: Pneumonia type: due to unspecified organism Laterality: bilateral Qualified Code(s): J18.9 - Pneumonia, unspecified organism - Discharge Medications Prescriptions: GuaiFENesin ER [Mucinex] 600 mg PO BID PRN #60 tbbp.12hr PRN Reason: Cough Home Medications: Acetaminophen [Tylenol] 500 mg PO Q6H PRN 12/05/14 [History] Aspirin [Adult Low Dose Aspirin EC] 81 mg PO DAILY 12/05/14 [History] Cholecalciferol (Vitamin D3) [Vitamin D3] 1,000 unit PO DAILY 12/05/14 [History] Omeprazole [PriLOSEC] 20 mg PO BID 12/05/14 [History] Spironolactone [Aldactone] 25 mg PO DAILY 12/05/14 [History] Biotin 1 mg PO DAILY 12/25/14 [History] Carvedilol 3.125 mg PO BID PRN 12/25/14 [History] Escitalopram [Lexapro] 10 mg PO QPM 12/25/14 [History] Ginkgo Biloba [place] Extract [Ginkgo Biloba] 30 mg PO DAILY 12/25/14 [History] Lovastatin [Mevacor] 20 mg PO HS 12/25/14 [History] Ondansetron HCl 4 mg PO Q8H PRN #60 tablet 01/06/16 [Rx] Apixaban [Eliquis] 5 mg PO BID 12/27/16 [History] LORazepam [Ativan] 1 mg PO DAILY PRN 12/27/16 [History] Levothyroxine [Synthroid] 50 mcg PO 0630 12/27/16 [History] [place]-3/Dha/Epa/Fish Oil [[place]-3 Fish Oil 1,000 mg Sfgl] 1,000 mg PO DAILY 08/07 [History] OxyCODONE Oral Soln [OxyCODONE ORAL SOLN] 5 ml PO Q6H PRN 12/27/16 [History] Valsartan [Diovan] 160 mg PO DAILY 12/27/16 [History] GuaiFENesin ER [Mucinex] 600 mg PO BID PRN #60 tbbp.12hr 12/28/16 [Rx] Allergies/Adverse Reactions: 3 Allergy/AdvReac Type Severity Reaction Status Date / Time Sulfa (Sulfonamide AdvReac Nausea Verified 11/13/14 04:06 Antibiotics) Procedures/tests Complete & Pending: Procedures Performed prior 72 hours Category Date Time Status NM oumar perf SPECT multi [NM] Routine Exams 12/27/16 17:53 Taken EV echocardiogram Routine Y 12/27/16 17:52 Completed SP pharm nuclear stress Routine Y 12/27/16 17:52 Completed Date of admission: 12/27/16 17:25 Primary care physician: Marcos Rosado MD Consults: 12/28/16 09:49 Consult to Cardiology [CONS] Routine Comment: Consulting Provider: Cardiology Meagan Reason for Consult: Chest pain, relieved with NTG in squad. Pt had questionable dysrhythmia on bedside monitor. Held stress until seen by cardiology Time Notified: 09:50 Call Completed: Yes Discharging clinician: Frannie Kelly Anticipated date of discharge: 12/28/16 - Patient Status Disposition: Home, Self-Care Condition: Good Functional capacity at discharge: independent ambulation Overall status at discharge: patient is back to baseline - Discharge Instructions Follow Up With: Marcos Rosado MD [Primary Care Provider] - Additional Instructions: Please follow up with your PCP in the next 7-10 days for a follow up visit. Return to the ER as needed for any other problems or concerns, or if your symptoms return or worsen. Take your medications as directed. Resume your normal activities as tolerated. - Diet and Activity Activity: increase activity as tolerated Diet: diabetic diet Hospital course: Please see assessment and plan for hospital course. - Time Spent with Patient Total time spent providing and/or coordinating discharge services: Less than 30 minutes - Constitutional Vitals: Temp Pulse Resp BP Pulse Ox 98.0 F 56 18 115/73 97 12/28/16 10:46 12/28/16 10:46 12/28/16 10:46 12/28/16 10:46 12/28/16 10:46 General appearance: Present: cooperative, A&O X 3, no acute distress, answers questions appropriately - Head Head exam: Present: normal inspection, normocephalic - Eye Eye exam: Present: normal appearance, conjuntiva pink, sclera anicteric - Neck Neck exam general surgery: Present: supple, trachea midline. Absent: lymphadenopathy, tenderness - Respiratory Respiratory exam: Present: decreased breath sounds, CTAB. Absent: accessory muscle use, chest wall tenderness, rales, respiratory distress, rhonchi, wheezes - Cardiovascular Cardiovascular exam: Present: RRR, +S1, +S2. Absent: diastolic murmur, gallop, rubs, systolic murmur - GI/Abdominal GI/Abdominal exam: Present: normal bowel sounds, soft, no peritoneal signs. Absent: distended, tenderness - Extremities Exam Extremities exam: Present: normal capillary refill, normal inspection, pedal edema, warm, radial pulses palpable and symmetrical. Absent: calf tenderness, cyanotic, tenderness Additional comments: +1 bilateral pedal/LE edema. - Neurological Exam Neurological exam: Present: alert, oriented X3, no focal deficits. Absent: altered, pronater drift, facial droop, speech deficit - Skin Skin exam: Present: dry, intact, normal color, warm. Absent: rash - VTE Reasons for not Prescribing Prophylaxis: Not indicated-Anticoagulated or INR therapeutic
[2016-12-28] MEDS: (Biotin [Biotin] 1 MG) PO SCH (13:12)
[2016-12-28] MEDS: Metoprolol XL (24 HR) Succ 25 MG TAB.ER.24H PO SCH (13:13)
[2016-12-28] MEDS: APIXABAN 5 MG TABLET PO SCH ×2 (13:15→20:41)
[2016-12-28] MEDS: Cholecalciferol (D-3) 1,000 UNIT TABLET PO SCH (13:15)
[2016-12-28] MEDS: Aspirin Enteric Coated 81 MG Tablet PO SCH (13:15)
[2016-12-28] MEDS: Ipratropium/Albuterol Neb 3 ML IH SCH ×3 (16:35→23:23)
[2016-12-29] MEDS: Ipratropium/Albuterol Neb 3 ML IH SCH ×3 (03:29→11:26)
[2016-12-29] MEDS: 0.9 % Sodium Chloride 500 ML IVC SCH ×2 (05:43→05:45)
--- NOTE | 2016-12-29 07:34 | Electrocardiograph Report ---
[address] [place], [place] [address] Test Date: 2016-12-27 Pat Name: Angelica Berumen Department: 103 Room: 3B24 Gender: F Salon/Spa Manager: : [id number] Requested By: Thanh Arevalo Order Number: [id number] Reading MD: Nas Hawk MD Measurements Intervals Quail Rate: 48 P: 32 WY: 235 QRS: -6 QRSD: 97 T: 25 QT: 456 QTc: 423 Interpretive Statements SINUS BRADYCARDIA WITH FIRST DEGREE AV BLOCK MINIMAL VOLTAGE CRITERIA FOR LVH, CONSIDER NORMAL VARIANT Electronically Signed On 12-29-2016 7:32:19 EST by Nas Hawk MD
[2016-12-29] MEDS ORDERED: Saline Nasal Spray 44 ML BOTTLE NS PRN (08:13)
[2016-12-29] MEDS: Cholecalciferol (D-3) 1,000 UNIT TABLET PO SCH (09:20)
[2016-12-29] MEDS: APIXABAN 5 MG TABLET PO SCH (09:20)
[2016-12-29] MEDS: Aspirin Enteric Coated 81 MG Tablet PO SCH (09:20)
[2016-12-29] MEDS: Metoprolol XL (24 HR) Succ 25 MG TAB.ER.24H PO SCH (09:20)
[2016-12-29] MEDS: (Biotin [Biotin] 1 MG) PO SCH (09:21)
--- NOTE | 2016-12-29 14:00 | Internal Med Progress Note ---
Date of Encounter: 12/29/16 Time of Encounter: 09:50 - Assessment and plan (1) Chest pain Current Visit: Yes Status: Acute Assessment and plan: Pt reports that over the last couple of weeks, she reports feeling weak and tired, admission notes report that she has had edema in bilateral upper and lower extremities. I have not appreciated edema over her stay. Patient reports that on the day of admission she began experiencing midsternal chest pain, shortness of breath, and nausea. There was no radiation, vomiting, diaphoresis or shortness of breath. There were no alleviating or aggravating factors. Patient reports that pain was relieved when she was given one sublingual nitroglycerin in the squad. She reports that she has not had any chest pain since that time. Denies chest pain since prior to admission. Patient has multiple risk factors for WI/ACS including hypertension, hyperlipidemia, diabetes and smoking. Patient has a history of prior WI. Pain is not reproducible with palpation, deep inspiration, or movement. She has had this same chest pain in the past, however this time was worse which was concerning and brought her to the emergency department. Patient had a concerning episode of what appeared to be V. tach on the monitor. I brought this to the attention of cardiology and consulted them prior to sending her to her stress test. They have added Toprol XL 25mg po daily. Pt has been bradycardic since arrival, average pulse has been in the 60s today. TSH WNL, troponins negative x 3, chest xray with minimal bibasilar airspace disease, atelectasis vs pna. Lungs are clear and diminished throughout. Patient had stress test was negative for ischemia or infarct with a gated EF of greater than 70%. Echocardiogram shows LVEF of 6065% with mild LV DD and no significant valvular dysfunction. Unclear etiology of chest pain. Most likely musculoskeletal in nature, discussed with patient warm compresses and increasing activity. Patient will need to follow-up with primary care for continued evaluation and monitoring. Qualifiers: Chest pain type: unspecified Qualified Code(s): R07.9 - Chest pain, unspecified (2) CKD (chronic kidney disease) stage 3, GFR 30-59 ml/min Current Visit: Yes Status: Chronic Assessment and plan: Serum creatinine and GFR both appear to be patient's baseline. Follow-up with primary care. Avoid nephrotoxins. (3) HTN (hypertension) Current Visit: Yes Status: Chronic Assessment and plan: Patient has been normotensive. She will continue her normal home medications, as well as adding metoprolol. Her blood pressure seemed to do well. She will need to follow-up with primary care. I also suggest monitoring her blood pressure at home and taking long share with primary care at her visit. Qualifiers: Hypertension type: essential hypertension Qualified Code(s): I10 - Essential (primary) hypertension (4) COPD (chronic obstructive pulmonary disease) Current Visit: Yes Status: Chronic Assessment and plan: Patient denies known history of COPD. she states that she is not a smoker, she has never smoked in the past. Her lungs are clear, no rales no rhonchi no wheezing, no respiratory distress. Patient does not take any medications at home. Chest X-Ray 12/27/16 14:54 IMPRESSION: Minimal bibasilar airspace disease, atelectasis versus pneumonia. D/ / Carola Stockton MD / Carola Stockton MD Interpreting Provider: Carola Stockton MD Qualifiers: COPD type: emphysema Emphysema type: unspecified Qualified Code(s): J43.9 - Emphysema, unspecified (5) CAD (coronary artery disease) Current Visit: Yes Status: Chronic Assessment and plan: Patient denies any chest pain since arrival. Plan as above for chest pain. She does have prior history of WI. Qualifiers: Coronary Disease-Associated Artery/Lesion type: [place] artery [place] vs. transplanted heart: [place] heart Associated angina: angina presence unspecified Qualified Code(s): I25.10 - Atherosclerotic heart disease of [place] coronary artery without angina pectoris (6) HLD (hyperlipidemia) Current Visit: Yes Status: Acute Assessment and plan: Labs within normal limits. Continue Mevacor at home after discharge. Qualifiers: Hyperlipidemia type: unspecified Qualified Code(s): E78.5 - Hyperlipidemia , unspecified (7) Pneumonia Current Visit: Yes Status: Acute Assessment and plan: Lungs are clear diminished throughout. Patient is in no distress. She denies any new, productive cough. She does however report recent weakness and fatigue. She has remained afebrile, normotensive, no tachycardia, no leukocytosis. She is stable and is not requiring supplemental oxygen. She denies known history of COPD. Patient reports that respiratory stopped breathing treatments due to the fact that they were unnecessary. Clinically, patient has no indication for pneumonia there is no indication for antibiotics or any further treatment at this time. Qualifiers: Pneumonia type: due to unspecified organism Laterality: bilateral Qualified Code(s): J18.9 - Pneumonia, unspecified organism - Time Spent With Patient less than 15 minutes - Subjective Interval history: Pt was seen and assessed at 0950 this a.m. She is alert, awake, denies chest pain, SOB, headache, n/v/d, diaphoresis, constipation, abdominal pain, or dizziness. She states that she feels better and is ready to go home. She states that she is aware of her bradycardia, as is cardiology. We discussed that I spoke with cardiology PATTERNATOR this a.m. and it was felt that it was ok for pt to have BB, she is agreeable. Pt denies known prior history of COPD, states that he is not a smoker and has never smoked. - Constitutional Vitals: Temp Pulse Resp BP Pulse Ox 98.3 F 60 14 123/75 96 12/29/16 13:22 12/29/16 13:22 12/29/16 13:22 12/29/16 13:22 12/29/16 13:22 General appearance: Present: cooperative, A&O X 3, no acute distress, obese, answers questions appropriately - Head Head exam: Present: atraumatic, normal inspection, normocephalic - Eye Eye exam: Present: normal appearance, conjuntiva pink, sclera anicteric - Neck Neck exam general surgery: Present: normal inspection, supple, trachea midline. Absent: lymphadenopathy, tenderness - Respiratory Respiratory exam: Present: decreased breath sounds, CTAB. Absent: accessory muscle use, chest wall tenderness, rales, respiratory distress, rhonchi, wheezes - Cardiovascular Cardiovascular exam: Present: RRR, +S1, +S2. Absent: diastolic murmur, gallop, rubs, systolic murmur - GI/Abdominal GI/Abdominal exam: Present: normal bowel sounds, soft, no peritoneal signs. Absent: distended, hepatomegaly, tenderness - Extremities Exam Extremities exam: Present: normal capillary refill, normal inspection, warm, radial pulses palpable and symmetrical. Absent: calf tenderness, cyanotic, pedal edema, tenderness - Neurological Exam Neurological exam: Present: alert, oriented X3, no focal deficits. Absent: facial droop, speech deficit - Skin Skin exam: Present: dry, intact, normal color, warm. Absent: rash Internal Medicine: Result - Labs CBC & Chem 7: 12/28/16 04:14 12/28/16 04:14 - VTE Reasons for not Prescribing Prophylaxis: Not indicated-Anticoagulated or INR therapeutic Consult Discharge Plan - Plan Additional Instructions: Please follow up with your PCP in the next 7-10 days for a follow up visit. Return to the ER as needed for any other problems or concerns, or if your symptoms return or worsen. Take your medications as directed. Resume your normal activities as tolerated. Referrals: Marcos Rosado MD [Primary Care Provider] - 01/05/17 2:15 pm Prescriptions: GuaiFENesin ER [Mucinex] 600 mg PO BID PRN #60 tbbp.12hr PRN Reason: Cough
[2016-12-29 14:17] VITALS: BP 131/79
== END 2016-12-29 15:55 | disposition home or self-care (01) ==
LOC: EMEROO 14:45 → 3BNU 14:45
PROVIDERS: ADMIT Nurse Practitioner; ATTEND Registered Nurse

== ENCOUNTER 2020-04-10 14:41 | Observation (INO) ==
[2020-04-10] MEDS ORDERED: Aspirin 81 MG TAB.CHEW PO ONE (14:58)
[2020-04-10] MEDS ORDERED: Nitroglycerin 0.4 MG TAB.SUBL SL PRN (14:58)
[2020-04-10 15:27] LABS: Basophils # 0.1 K/mcL (0.0-0.2); Basophils % 0.7 %; Eosinophils # 0.1 K/mcL (0.0-0.6); Eosinophils % 0.8 %; Hematocrit 41.9 % (35.3-44.9); Hemoglobin 13.1 g/dL (11.5-15.4); Immature Granulocytes % 0.9 % (0-4); Lymphocytes # 0.9 K/mcL (0.6-4.6); Lymphocytes % 9.1 %; Mean Corpuscular HGB Conc 31.3 g/dL (31.6-35.5); Mean Corpuscular Volume 92.9 fL (83.0-100.0); Mean Platelet Volume 10.4 fL (9.4-12.4); Monocytes # 0.6 K/mcL (0.0-1.3); Monocytes % 5.9 %; Neutrophils # 8.1 K/mcL (1.6-8.9); Platelet Count 308 K/mcL (140-400); Red Blood Count 4.51 M/mcL (3.82-4.97); Red Cell Distribution Width 14.3 % (11.5-14.5); Segmented Neutrophils % 82.6 %; White Blood Count 9.8 K/mcL (4.3-11.1)
[2020-04-10 15:34] LABS: INR 1.6; Prothrombin Time 17.8 Seconds (9.4-12.1)
[2020-04-10 15:36] LABS: Activated Partial Thrombo Time 37.4 Seconds (26.0-36.0)
[2020-04-10 15:47] LABS: BUN/Creatinine Ratio 17 (6-26); Blood Urea Nitrogen 19 mg/dL (8-23); Carbon Dioxide 28 mEq/L (23-29); Chloride 103 mEq/L (98-107); Glucose 124 mg/dL (70-105); Lipase 11 Units/L (11-82); Osmolality,Calculated 292 (280-300); Potassium 4.3 mEq/L (3.5-5.1); Sodium 139 mEq/L (136-145); eGFR For African Americans 58 (> 60); eGFR For Non-African Americans 48 (> 60)
[2020-04-10 15:48] LABS: Troponin I < 0.03 ng/mL (< 0.04)
[2020-04-10 16:01] LABS: Bilirubin,Urine Negative (Negative); Blood,Urine Negative (Negative); Clarity,Urine Clear (Clear); Color,Urine Colorless (Yellow); Glucose,Urine (UA) Normal (Normal); Ketones,Urine Negative (Negative); Leukocyte Esterase,Urine Negative (Negative); Nitrite,Urine Negative (Negative); PH,Urine 6.5 pH Units (5.0-8.0); Protein,Urine Negative (Neg-Trace); Specific Gravity,Urine 1.007 (1.010-1.025); Urobilinogen,Urine Normal (Normal)
[2020-04-10] MEDS ORDERED: Acetaminophen 325 MG TABLET PO PRN (17:28)
[2020-04-10] MEDS ORDERED: Ondansetron 4 MG/2 ML VIAL IVP PRN (17:28)
[2020-04-10] MEDS ORDERED: Naloxone 0.4 MG/ML INJ IVP PRN (17:28)
[2020-04-10] MEDS ORDERED: *HR* Dextrose 50 % in Water (Vial) 50 ML VIAL IVP PRN (17:33)
[2020-04-10] MEDS ORDERED: D5% in Water 1,000 ML IVC PRN (17:33)
[2020-04-10] MEDS ORDERED: Dextrose Gel 15 GM/37.5 ML TUBE PO PRN ×2 (17:33)
[2020-04-10] MEDS ORDERED: Perflutren Lipid Microsphere 1.3 ML in 0.9 % Sodium Chloride 8.7 ML IVP PRN (17:34)
[2020-04-10] MEDS: Apixaban 5 MG TABLET PO SCH (20:25)
[2020-04-10] MEDS ORDERED: Insulin LISPRO 300 UNITS/3 ML VIAL SUBQ SCH (21:00)
[2020-04-11 03:17] LABS: Basophils # 0.1 K/mcL (0.0-0.2); Basophils % 0.7 %; Eosinophils # 0.2 K/mcL (0.0-0.6); Eosinophils % 2.3 %; Immature Granulocytes % 0.4 % (0-4); Lymphocytes % 14.6 %; Mean Corpuscular HGB Conc 31.9 g/dL (31.6-35.5); Mean Corpuscular Hemoglobin 29.6 pg (28.0-33.3); Mean Corpuscular Volume 92.8 fL (83.0-100.0); Monocytes # 0.8 K/mcL (0.0-1.3); Monocytes % 11.3 %; Platelet Count 255 K/mcL (140-400); Red Blood Count 3.88 M/mcL (3.82-4.97); Red Cell Distribution Width 14.2 % (11.5-14.5); Segmented Neutrophils % 70.7 %
[2020-04-11 03:37] LABS: Calcium 9.6 mg/dL (8.6-10.3); Chol/HDL Ratio 2.8 (0-4.9); Phosphorous 4.4 mg/dL (2.7-4.5)
[2020-04-11 03:47] LABS: Hemoglobin 11.5 g/dL (11.5-15.4)
[2020-04-11 03:50] LABS: Thyroid Stimulating Hormone 3.869 mcIU/mL (0.340-5.600)
[2020-04-11] MEDS ORDERED: Regadenoson 0.4 MG/5 ML SYRINGE IVP ONE (06:25)
[2020-04-11] MEDS ORDERED: Spironolactone 25 MG TABLET PO SCH (09:00)
[2020-04-11] MEDS ORDERED: Aspirin Enteric Coated 81 MG Tablet PO SCH (09:00)
[2020-04-11] MEDS: Apixaban 5 MG TABLET PO SCH (10:12)
[2020-04-11] MEDS: Insulin LISPRO 300 UNITS/3 ML VIAL SUBQ SCH ×2 (11:11→11:12)
[2020-04-11 11:13] VITALS: BP 144/67
[2020-04-11 12:00] LABS: Estimated Average Glucose 126 mg/dl
== END 2020-04-11 16:06 | disposition home or self-care (01) ==
LOC: EMEROOARM 14:41 → 3BNU 14:41
PROVIDERS: ADMIT Internal Medicine; ATTEND Internal Medicine